=== PATIENT | male | born 1975 | race Caucasian/White ===

== ENCOUNTER 2019-06-12 12:03 | Emergency (ER) | payer MEDICARE ==
[~2019-06-12] VITALS: Ht 175.3 cm; Wt 105.0 kg
[2019-06-12] MEDS ORDERED: ACETAMINOPHEN 500MG TABLET PO ONE (15:00)
[2019-06-12] MEDS ORDERED: IBUPROFEN 800MG TABLET PO ONE (15:00)
[2019-06-12 18:12] VITALS: BP 132/89
== END 2019-06-12 16:30 | disposition home or self-care (01) ==
LOC: ER 15:58
DX: S62.511A Displaced fracture of proximal phalanx of right thumb, initial encounter for closed fracture (principal); Y04.0XXA Assault by unarmed brawl or fight, initial encounter; W18.39XA Other fall on same level, initial encounter; Y93.89 Activity, other specified; Y92.89 Other specified places as the place of occurrence of the external cause
CPT/HCPCS: 29125; 73130; 99283